=== PATIENT | male | born 1980 | race Caucasian/White ===

== ENCOUNTER 2021-05-24 19:33 | Emergency (ER) | payer SELFPAY ==
[2021-05-24 20:07] VITALS: BP 137/81; PULSE 74; RESP 18; TEMP 37.3; O2SAT 95; BMI 35.5
--- NOTE | 2021-05-24 20:56 | ECG_ITS ---
Test Reason : DIZZINESS Blood Pressure : / mmHG Vent. Rate : 073 BPM Atrial Rate : 073 BPM P-R Int : 180 ms QRS Dur : 090 ms QT Int : 370 ms P-R-T Axes : 043 -24 024 degrees QTc Int : 407 ms Normal sinus rhythm Normal ECG No previous ECGs available Referred By: Odin Murcia Electronically Signed By:TAMY MUÑOZ MD
--- NOTE | 2021-05-24 20:57 | ED_ITS ---
HPI - Anxiety General Chief Complaint: Dizziness Stated Complaint: nausea and dizzy Time Seen by Provider: 05/24/21 20:50 Source: patient Mode of arrival: ambulatory Limitations: no limitations History of Present Illness HPI narrative: This is a 41 years old patient visiting from [place] presented to the emergency department complaining of increasing anxiety dizziness. He tells me that he has history of cocaine abuse and is been off cocaine for about 3 weeks, he tells me that he has history of hypertension and anxiety disorder as well. He came to the emergency room because his blood pressure was elevated at home, is under a lot of stress for family reason. complaint: anxiety Onset (ago): day(s) (1) Severity: moderate Quality: intermittent History of similar episodes: Yes Provoking factors: emotional stress Relieving factors: nothing Exacerbating factors: nothing Related Data Previous Rx's Medication Instructions Recorded fenofibrate 160 mg tablet 160 mg PO DAILY #20 tab 05/24/21 Allergies Allergy/AdvReac Type Severity Reaction Status Date / Time No Known Allergies Allergy Verified 05/24/21 20:05 Review of Systems Review of Systems: Yes all other systems are reviewed and are negative Constitutional: Constitutional: Reports no additional constitutional complaints Cardiovascular: Cardiovascular: Reports no additional cardiovascular complaints Respiratory: Respiratory: Reports no additional respiratory complaints Gastrointestinal: Gastrointestinal: Reports no additional gastrointestinal complaints and Denies abdominal pain Neurologic: Reports system reviewed and no additional complaints, except as documented PMFSH Past Medical History Medical History Anxiety High triglycerides Hypertension Substance abuse Social History Social History Advance Directives: No Physical Exam Vital Signs: Vital Signs: Last Vital Signs Temp 99.0 F 05/24/21 21:23 Pulse 74 05/24/21 21:23 Resp 16 05/24/21 21:23 BP 120/75 05/24/21 21:23 Pulse Ox 99 05/24/21 21:23 Body Mass Index 35.5 Const: General: cooperative, comfortable, no acute distress, well developed, alert, awake and Physically active; No acute distress Nutritional Appearance: average body habitus Orientation/consciousness: oriented to person, oriented to place, oriented to time and patient oriented x3 HENMT: Head: Yes normal to inspection and Yes normocephalic Face and sinus: Yes normal facial exam Mouth: Normal oral and palatal mucosa present Th roat: Yes posterior oropharynx normal Neck: Neck: Yes normal visual inspection, Yes full ROM and Yes no lymphadenopathy Thyroid: Thyroid normal Chest: Chest palpation & inspection: normal inspection of the chest Resp: Effort & Inspection: normal respiratory effort and able to speak in complete sentences Auscultation: clear to auscultation bilaterally Cardio: Jugular venous distension: no JVD Rate: regular rate Rhythm: regular rhythm Heart sounds: S1 normal heart sound present and S2 normal heart sound present GI: Inspection: Yes normal to inspection Palpation (GI): Soft to palpation, not firm and nontender Percussion: Yes normal to percussion Auscultation: normal bowel sounds Skin: General skin exam: no rashes or lesions noted, elasticity normal and turgor normal Lesions: no lesions Rashes: no rashes Neuro: General: oriented to person, oriented to place, oriented to time and patient oriented x3 Cranial nerves: Yes CN's II-XII intact bilaterally Course Reevaluation(s) Reevaluation #1: He is feeling much better at this point his vital signs are stable his electrocardiogram is within normal limit I do not think we need to do any blood work on this patient. He is asking me to refill is medication of fenofibrate for hypertriglyceridemia because his primary care physician is in [place] and he is visititing [place] MDM - Anxiety ECG Data Attestation: I personally reviewed and interpreted this ECG as follows: Pacemaker model: NSR rate [address]-t changes Discharge Plan Discharge Clinical Impression: Anxiety Patient Disposition: Home, Self-Care Instructions: Anxiety (ED) Additional Instructions: Follow-up with your primary care physician as needed the return to the emergency room if you worse any concern Prescriptions: New fenofibrate 160 mg tablet 160 mg PO DAILY Qty: 20 RF: 0
[2021-05-24] MEDS: LORazepam 1 MG TABLET PO (21:22)
[2021-05-24 21:23] VITALS: BP 120/75; PULSE 74; RESP 16; TEMP 37.2; O2SAT 99
== END 2021-05-24 21:50 | disposition home or self-care (01) ==
PROVIDERS: Emergency Provider Emergency Medicine
DX: F41.9 Anxiety disorder, unspecified (principal); I10 Essential (primary) hypertension; E78.1 Pure hyperglyceridemia; F14.11 Cocaine abuse, in remission
CPT/HCPCS: 93005; 99283; 99284